=== PATIENT | female | born 1960 | race African-American/Black ===

== ENCOUNTER → 2017-08-14 | Outpatient (CLI) | payer MEDICAID ==
[~2017-08-14] MED LIST: AZAT50TA9 PO; CHOL500045 PO; CITA20TA9 PO; COLE625T12 PO; EZET10TA18 PO; LEVA15HF4 IH; PRED5TAB PO; PREG75CA PO; ROSU5TAB PO
== END | disposition home or self-care (01) ==
LOC: LDOP 15:30
PROVIDERS: ATTEND Specialist
DX: M25.551 Pain in right hip (principal)